=== PATIENT | male | born 1930 | race Caucasian/White ===

== ENCOUNTER 2017-09-14 12:11 | Outpatient (CLI) | payer MEDICARE ==
[~2017-09-14] VITALS: Ht 180.3 cm; Wt 79.4 kg
[2017-09-14] MEDS ORDERED: DEXAMETHASONE 10 MG/ML (DECADRON) 1 ML VIAL ONE (12:17)
[2017-09-14 12:24] VITALS: BP 136/61
[2017-09-14 13:24] VITALS: BP 145/67
--- NOTE | 2017-09-18 17:04 | OPERATIVE REPORT ---
DATE OF SERVICE: 09/14/2017 DIAGNOSIS: Cervical radiculopathy. PROCEDURE: Fluoroscopic guided interlaminar epidural steroid injection. PROCEDURE IN DETAIL: After obtaining informed consent from the patient, the patient's chart was reviewed. The patient was then brought to the procedure room and placed in prone position, timeout was performed. The upper back was prepped with antiseptic solution and under fluoro guidance, patient's C7-T1 region was identified. The C7-T1 vertebral body was identified with fluoro guidance and approximately 2 mL of 1.5% lidocaine solution was used to anesthetize the skin down to the pedicle and under fluoro guidance using a 22-guage 3-1/2 inch spinal needle, this tract was anesthetized all way from the pedicle down to the intralaminar space in between C7-T1. After this tract was anesthetized, then a 20-guage Tuohy was used and involved the same tract. Using a loss of resistance syringe, the Tuohy was then directed into the epidural space under fluoro guidance. Upon obtaining loss of resistance, the syringe was exchanged for a syringe containing radiopaque dye and secondary identification of the epidural space was then obtained. At this point, the syringe was then exchanged for a syringe containing 10 mL of dexamethasone and this was injected into the epidural space, washout was identified under fluoroscopy. Needle was then flushed with the normal saline from the loss of resistance, approximately 0.5 mL and then needle removed. Bandages were applied to all procedure sites. The patient tolerated procedure well and was taken to the recovery room in stable condition. COMPLICATIONS: None. Job ID: [id number] DocumentID: [id number] Dictated Date: 09/18/2017 09:43:12 [employer] Date: 09/18/2017 17:03:59 Dictated By: SAMANTHA ELIAS DO
== END 2017-09-14 13:27 | disposition home or self-care (01) ==
LOC: CARD 12:11
PROVIDERS: ATTEND Pain Medicine Interventional Pain Medicine
DX: M54.12 Radiculopathy, cervical region (principal); E11.9 Type 2 diabetes mellitus without complications; J44.9 Chronic obstructive pulmonary disease, unspecified; Z79.01 Long term (current) use of anticoagulants; Z79.899 Other long term (current) drug therapy
CPT/HCPCS: 62321